=== PATIENT | female | born 1965 | race Two or more races ===

== ENCOUNTER 2021-01-29 10:57 | Day surgery (SDC) | payer OTHER ==
[~2021-01-29 10:57] MED LIST: CATAPRES0.3 MG PO; HYDROLAZINE; NEURONTIN800 MG PO; NORVASC2.5 M1; PEPCID AC10 MG PO; PRILOSEC OTC20 MG PO; ZESTRIL2.5 MG
[2021-01-29] MEDS ORDERED: ULTRACET PO (13:02)
== END 2021-01-29 17:30 | disposition home or self-care (01) ==
LOC: CIR.AMB 10:57
PROVIDERS: ATTEND Surgery
DX: C20 Malignant neoplasm of rectum (principal); Z20.822 Contact with and (suspected) exposure to COVID-19
CPT/HCPCS: 36561; C1751

== ENCOUNTER 2021-09-03 11:30 | Inpatient (IN) | payer OTHER ==
[~2021-09-03] VITALS: Ht 170.2 cm; Wt 81.6 kg
[~2021-09-03 11:30] MED LIST changes: +ULTRACET PO
[2021-09-03] MEDS ORDERED: HYDROCHLOROTHIA25 MG PO (14:03)
[2021-09-13] MEDS ORDERED: INTESTINEX680 M1 PO (10:38)
[2021-09-13] MEDS ORDERED: ULTRACET PO (10:38)
[2021-09-13] MEDS ORDERED: LOPERAMIDE2 MG PO (10:38)
== END 2021-09-13 22:03 | disposition home or self-care (01) | DRG 330 ==
LOC: ADM 11:30 → O/R 09-07 06:56 → SURH 09-07 06:56 → EDSTATUS 09-07 11:30 → SURH 09-07 11:30 → CIR.AMB 09-07 11:30 → SURH 09-07 16:55
PROVIDERS: ADMIT Surgery; ATTEND Surgery
PROC: 0DTP4ZZ Resection of Rectum, Percutaneous Endoscopic Approach (ICD-10-PCS; 2021-09-07)
PROC: 07BC4ZZ Excision of Pelvis Lymphatic, Percutaneous Endoscopic Approach (ICD-10-PCS; 2021-09-07)
PROC: 0UQG4ZZ Repair Vagina, Percutaneous Endoscopic Approach (ICD-10-PCS; 2021-09-07)
PROC: 0D1B4Z4 Bypass Ileum to Cutaneous, Percutaneous Endoscopic Approach (ICD-10-PCS; 2021-09-07)
PROC: 0DTN4ZZ Resection of Sigmoid Colon, Percutaneous Endoscopic Approach (ICD-10-PCS; principal; 2021-09-07 07:00)
DX: C20 Malignant neoplasm of rectum (principal); K62.5 Hemorrhage of anus and rectum; N73.6 Female pelvic peritoneal adhesions (postinfective); N99.4 Postprocedural pelvic peritoneal adhesions; K62.89 Other specified diseases of anus and rectum; R59.0 Localized enlarged lymph nodes; I10 Essential (primary) hypertension; Z20.822 Contact with and (suspected) exposure to COVID-19

== ENCOUNTER 2021-09-24 09:35 | Emergency (ER) | payer OTHER ==
[~2021-09-24] VITALS: Ht 170.2 cm; Wt 81.6 kg
[~2021-09-24 09:35] MED LIST changes: +HYDROCHLOROTHIA25 MG PO; +INTESTINEX680 M1 PO; +LOPERAMIDE2 MG PO
== END 2021-09-24 16:39 | disposition home or self-care (01) ==
LOC: ER 09:35
DX: L98.8 Other specified disorders of the skin and subcutaneous tissue (principal); Z88.6 Allergy status to analgesic agent; Z88.0 Allergy status to penicillin; Z20.822 Contact with and (suspected) exposure to COVID-19

== ENCOUNTER 2022-05-10 10:24 | Outpatient (CLI) | payer OTHER | END 2022-05-10 10:35 | disposition home or self-care (01) | LOC: RX STUDY 10:24 | PROVIDERS: ATTEND Surgery | DX: C20 Malignant neoplasm of rectum (principal); K62.5 Hemorrhage of anus and rectum; K62.89 Other specified diseases of anus and rectum; R59.0 Localized enlarged lymph nodes; N82.3 Fistula of vagina to large intestine ==

== ENCOUNTER 2022-05-24 09:15 | Inpatient (IN) | payer OTHER ==
[~2022-05-24] VITALS: Ht 170.2 cm; Wt 90.7 kg
[2022-05-24] MEDS ORDERED: LIPITOR20 MG PO (13:00)
[2022-05-24] MEDS ORDERED: PEPCID AC20 MG PO (13:00)
[2022-05-24] MEDS ORDERED: AMLODIPINE BESYL5 MG PO (13:01)
[2022-05-24] MEDS ORDERED: AMITRIPTYLINE H25 MG PO (13:02)
[2022-05-24] MEDS ORDERED: HYDRALAZINE HCL50 MG PO (13:02)
[2022-05-27] MEDS ORDERED: FLONASE16 GM (13:29)
[2022-05-27] MEDS ORDERED: CIPROFLOXACIN500 MG (13:29)
[2022-05-27] MEDS ORDERED: MONTELUKAST SOD10 MG (13:29)
[2022-05-27] MEDS ORDERED: ALLERGY RELIEF10 MG (13:29)
[2022-05-27] MEDS ORDERED: LISINOPRIL40 MG (13:29)
[2022-05-30] MEDS ORDERED: PRILOSEC OTC20 MG PO (07:37)
[2022-05-30] MEDS ORDERED: NEURONTIN300 MG PO (07:37)
[2022-05-30] MEDS ORDERED: ACETAMINOPHEN500 M2 PO (07:37)
[2022-05-30] MEDS ORDERED: INTESTINEX680 M1 PO (07:37)
[2022-05-30] MEDS ORDERED: ZOFRAN8 MG PO (07:37)
== END 2022-05-30 11:19 | disposition home or self-care (01) | DRG 349 ==
LOC: O/R 05-27 09:13 → SURH 05-27 09:15 → SURG 05-27 17:07
PROVIDERS: ADMIT Surgery; ATTEND Surgery
PROC: 0DBB4ZZ Excision of Ileum, Percutaneous Endoscopic Approach (ICD-10-PCS; principal; 2022-05-27 12:45)
DX: Z43.2 Encounter for attention to ileostomy (principal); Z20.822 Contact with and (suspected) exposure to COVID-19

== ENCOUNTER 2024-02-02 07:15 | Day surgery (SDC) | payer OTHER ==
[~2024-02-02 07:15] MED LIST changes: +ACETAMINOPHEN500 M2 PO; +ALL DAY ALLERGY10 M3; +ALLERGY RELIEF10 MG; +AMITRIPTYLINE H25 MG; +AMITRIPTYLINE H25 MG PO; +AMLODIPINE BESYL5 MG PO; +CIPROFLOXACIN500 MG; +CLONIDINE HCL0.1 MG; +FLONASE16 GM; +HYDRALAZINE HCL50 MG PO; +HYDROCHLORIC A500 M1; +LIPITOR20 MG PO; +LISINOPRIL40 MG; +MONTELUKAST SOD10 MG; +NEURONTIN300 MG PO; +PEPCID AC20 MG PO; +ZOFRAN8 MG PO
[2024-02-02] MEDS ORDERED: TRAM1TAB98 PO (13:34)
[2024-02-02] MEDS ORDERED: VANCOMYCIN HCL 1,000 MG VIAL IV ONE (14:15)
[2024-02-02] MEDS ORDERED: CHLORHEXIDINE GLUCONATE 120 ML BOTTLE TOP ONE (14:15)
[2024-02-02] MEDS ORDERED: CEFAZOLIN SODIUM 1,000 MG VIAL IV ONE (14:15)
== END 2024-02-02 16:20 | disposition home or self-care (01) ==
LOC: CIR.AMB 07:15
PROVIDERS: ATTEND Surgery
DX: T82.594A Other mechanical complication of infusion catheter, initial encounter (principal); C20 Malignant neoplasm of rectum